=== PATIENT | female | born 1995 | race Caucasian/White ===

== ENCOUNTER 2019-08-20 11:27 | Emergency (ER) | payer SELFPAY ==
[~2019-08-20] VITALS: Ht 165.1 cm; Wt 78.5 kg
[2019-08-20 11:36] VITALS: BP 119/79
--- NOTE | 2019-08-20 12:08 | NUR ---
TO ER BED 2
--- NOTE | 2019-08-20 12:20 | NUR ---
24/F TO ED VIA PRIMARY CARE DR CANDELARIA FOR PERSISTANT N/V WITH ABD PAIN. ABD IS SOFT NON TENDER. NO DISTENTION NOTED. BOWEL SOUNDS PRESENT X 4. NO DISTRESS NOTED. IN BED FOR MSE.
--- NOTE | 2019-08-20 12:23 | NUR ---
Patient being evaluated by DR. WHITE at bedside.
[2019-08-20] MEDS ORDERED: ONDANSETRON 4 MG/2 ML VIAL IVP ONE (12:25)
[2019-08-20] MEDS ORDERED: MULTIVITAMIN-12 10 ML, THIAMINE 100 MG, MAGNESIUM SULFATE 50% 2,000 MG, FOLIC ACID 5 MG... IV ONE ×5 (12:25)
[2019-08-20] MEDS ORDERED: PROMETHAZINE 25 MG SUPP RC ONE (12:25)
--- NOTE | 2019-08-20 12:40 | NUR ---
IV INSERTED TO LEFT AC 20GA WITH GOOD BLOOD RETURN, LAB COLLECTED ORDERED, PATIENT TOLERATED WELL.
--- NOTE | 2019-08-20 12:51 | NUR ---
US AT BEDSIDE
[2019-08-20 12:59] LABS: APPEARANCE,URINE CLEAR (CLEAR); BILIRUBIN,URINE 1+ (NEGATIVE); BLOOD, URINE 2+ (NEGATIVE); COLOR,URINE YELLOW (YELLOW); LEUKOCYTE ESTERASE ,URINE 1+ (NEGATIVE); NITRITE, URINE NEGATIVE (NEGATIVE); UGLUCOSE NEGATIVE (NEGATIVE)
--- NOTE | 2019-08-20 13:00 | NUR ---
STARTED BANANA BAG, INDICATION AND SIDE EFFECTS EXPLAINED TO PATIENT, PATIENT VERBALIZED UNDERSTANDING, WILL CONTINUE TO MONITOR.
[2019-08-20 13:10] LABS: ACETONE, SERUM NEGATIVE (NEGATIVE); BASOPHILS % (AUTO) 0.2 % (0.0-2.0); EOSINOPHILS % (AUTO) 0.3 % (0.0-4.0); HEMATOCRIT 38.5 % (36-48); LYMPHOCYTES % (AUTO) 18.8 % (20.5-51.1); MEAN CORPUSCULAR HEMOGLOBIN 31 pg (27-31); MEAN CORPUSCULAR HGB CONC 34 g/dL (33-37); MEAN CORPUSCULAR VOLUME 90.6 fL (80-94); MONOCYTES # (AUTO) 0.7 K/uL (0.8-1.0); MONOCYTES % (AUTO) 6.2 % (1.7-9.3); NEUTROPHILS % (AUTO) 74.5 % (42.2-75.2); PLATELET COUNT (AUTO) 300 K/uL (140-450); RED BLOOD CELL COUNT(AUTO) 4.25 MIL/uL (4.20-5.40); RED CELL DISTRIBUTION WIDTH 12.5 % (11.6-13.7); WHITE BLOOD COUNT (AUTO) 10.8 K/uL (4.8-10.8)
[2019-08-20 13:19] LABS: RBC,URINE NONE SEEN /HPF (0-5)
--- NOTE | 2019-08-20 14:00 | NUR ---
BANANA BAG COMPLETED ORDERED, PATIENT TOLERATED WELL, VSS, DENIES PAIN, DENIES N/V AT THIS TIME, DR. WHITE MADE AWARE.
--- NOTE | 2019-08-20 15:00 | NUR ---
BANANA BAG IS COMPLETED, NO S/S OF ADVERSE EFFECTS, PATINET STATED FEELING BETTER, DR. WHITE MADE AWARE.
[2019-08-20] MEDS ORDERED: GLYCERIN PEDIATRIC 1 SUPP RC ONE (15:05)
--- NOTE | 2019-08-20 15:20 | NUR ---
IV REMOVED, NO BLEEDING NOTED.
[2019-08-20 15:29] VITALS: BP 122/78
--- NOTE | 2019-08-20 15:29 | NUR ---
Patient discharged TO HOME. Written and verbal after care instructions given and explained. Rx of ZOFRAN given. Patient educated on indication of medication including possible reaction and side effects. All questions addressed prior to discharge. ID band removed. Patient advised to follow up with PMD.
== END 2019-08-20 15:29 | disposition home or self-care (01) ==
LOC: MED 11:27
DX: O21.0 Mild hyperemesis gravidarum (principal); O99.281 Endocrine, nutritional and metabolic diseases complicating pregnancy, first trimester; O26.891 Other specified pregnancy related conditions, first trimester; E86.0 Dehydration; K59.00 Constipation, unspecified; Z3A.08 8 weeks gestation of pregnancy
CPT/HCPCS: 36415; 76801; 81001; 82009; 83605; 83735; 84702; 85025; 86900; 86901; 87086; 96365; 96375; 99284; A9153; J2405; J2550; J3411; J3475; J3490; J7030; Q0092

== ENCOUNTER 2019-09-15 18:41 | Emergency (ER) | payer SELFPAY ==
[~2019-09-15] VITALS: Ht 167.6 cm; Wt 75.7 kg
[2019-09-15 19:11] VITALS: BP 116/72
--- NOTE | 2019-09-15 19:19 | NUR ---
PT AMBULATED TO ER BED 07
--- NOTE | 2019-09-15 19:35 | NUR ---
PT BIB SPOUSE C/O VAGINAL BLEEDING FOR THE LAST TWO HOURS. SAYS SHE'S CHANGED THE PAD TWICE; BRIGHT RED BLOOD; PADS NOT SATURATED. PT IS 11 WEEKS ; LMP 12/3; DENIES ABD PAIN. PT STATES SHE HAS BEEN NAUSEOUS THROUGHOUT THE AND HAS BEEN TAKING ZOFRAN, WELL FOLIC ACID. DENIES DIARRHEA AND URINARY SYMPTOMS. PT STATES SHE HAS HAD LBP X2 DAYS 01/07 WHEN LAYING DOWN. AOX4, BREATHING NON-LABORED DENIES SOB, CP. VSS. RESTING COMFORTABLY WITH GURNEY UPRIGHT; SPOUSE AT BEDSIDE.
[2019-09-15 20:29] LABS: BASOPHILS # (AUTO) 0.1 K/uL (0.00-0.22); BASOPHILS % (AUTO) 1.1 % (0.0-2.0); EOSINOPHILS # (AUTO) 0.1 K/uL (0-0.4); EOSINOPHILS % (AUTO) 0.7 % (0.0-4.0); HEMATOCRIT 36.6 % (36-48); HEMOGLOBIN 12.4 g/dL (12.0-16.0); LYMPHOCYTES # (AUTO) 3.1 K/uL (2.5-16.5); LYMPHOCYTES % (AUTO) 27.3 % (20.5-51.1); MEAN CORPUSCULAR HEMOGLOBIN 30 pg (27-31); MEAN CORPUSCULAR HGB CONC 34 g/dL (33-37); MEAN CORPUSCULAR VOLUME 87.8 fL (80-94); MONOCYTES # (AUTO) 0.8 K/uL (0.8-1.0); MONOCYTES % (AUTO) 6.7 % (1.7-9.3); NEUTROPHILS # (AUTO) 7.4 K/uL (1.8-7.7); NEUTROPHILS % (AUTO) 64.2 % (42.2-75.2); PLATELET COUNT (AUTO) 244 K/uL (140-450); RED BLOOD CELL COUNT(AUTO) 4.17 MIL/uL (4.20-5.40); RED CELL DISTRIBUTION WIDTH 12.8 % (11.6-13.7); WHITE BLOOD COUNT (AUTO) 11.5 K/uL (4.8-10.8)
[2019-09-15 20:53] LABS: ALBUMIN 3.7 g/dL (3.4-5.0); ANION GAP 14.5 (8-16); CARBON DIOXIDE 24.3 mmol/L (21-32); CREATININE 0.5 mg/dL (0.6-1.3); POTASSIUM 3.8 mmol/L (3.5-5.1); TOTAL BILIRUBIN 0.3 mg/dL (0.0-1.0)
--- NOTE | 2019-09-15 21:30 | NUR ---
Patient discharged with v/s stable. Written and verbal after care instructions given and explained. Patient verbalized understanding. Ambulatory with steady gait. All questions addressed prior to discharge. Advised to follow up with PMD.
[2019-09-15 21:43] VITALS: BP 115/70
== END 2019-09-15 21:30 | disposition home or self-care (01) ==
LOC: MED 18:41
DX: O20.8 Other hemorrhage in early pregnancy (principal); Z3A.11 11 weeks gestation of pregnancy
CPT/HCPCS: 36415; 76801; 80053; 81002; 81025; 84702; 85025; 86900; 86901; 99284

== ENCOUNTER 2019-10-23 17:09 | Emergency (ER) | payer MEDICAID ==
[~2019-10-23] VITALS: Ht 165.1 cm; Wt 66.2 kg
[2019-10-23 17:14] VITALS: BP 124/82
[2019-10-23] MEDS ORDERED: METOCLOPRAMIDE 10 MG/2 ML INJ VIAL IVP ONE (17:35)
[2019-10-23] MEDS ORDERED: NACL 0.9% 1,000 ML IV ONE ×2 (17:35→18:20)
[2019-10-23 17:53] LABS: APPEARANCE,URINE CLEAR (CLEAR); BILIRUBIN,URINE 2+ (NEGATIVE); BLOOD, URINE NEGATIVE (NEGATIVE); COLOR,URINE ORANGE (YELLOW); LEUKOCYTE ESTERASE ,URINE NEGATIVE (NEGATIVE); NITRITE, URINE NEGATIVE (NEGATIVE); UGLUCOSE TRACE (NEGATIVE)
[2019-10-23 17:53] LABS: BASOPHILS % (AUTO) 0.4 % (0.0-2.0); EOSINOPHILS % (AUTO) 0.1 % (0.0-4.0); HEMATOCRIT 41.5 % (36-48); HEMOGLOBIN 14.3 g/dL (12.0-16.0); LYMPHOCYTES # (AUTO) 1.8 K/uL (2.5-16.5); LYMPHOCYTES % (AUTO) 16.8 % (20.5-51.1); MEAN CORPUSCULAR HEMOGLOBIN 31 pg (27-31); MEAN CORPUSCULAR HGB CONC 35 g/dL (33-37); MEAN CORPUSCULAR VOLUME 89.1 fL (80-94); MONOCYTES # (AUTO) 0.6 K/uL (0.8-1.0); MONOCYTES % (AUTO) 5.6 % (1.7-9.3); NEUTROPHILS # (AUTO) 8.3 K/uL (1.8-7.7); NEUTROPHILS % (AUTO) 77.1 % (42.2-75.2); PLATELET COUNT (AUTO) 333 K/uL (140-450); RED BLOOD CELL COUNT(AUTO) 4.66 MIL/uL (4.20-5.40); RED CELL DISTRIBUTION WIDTH 12.5 % (11.6-13.7); WHITE BLOOD COUNT (AUTO) 10.8 K/uL (4.8-10.8)
[2019-10-23 18:11] LABS: ALBUMIN 4.2 g/dL (3.4-5.0); ANION GAP 19.5 (8-16); CARBON DIOXIDE 24.6 mmol/L (21-32); CREATININE 0.9 mg/dL (0.6-1.3); POTASSIUM 3.1 mmol/L (3.5-5.1); TOTAL BILIRUBIN 2.3 mg/dL (0.0-1.0)
[2019-10-23 19:04] VITALS: BP 117/59
== END 2019-10-23 19:04 | disposition home or self-care (01) ==
LOC: MED 17:09
DX: O21.0 Mild hyperemesis gravidarum (principal); O99.282 Endocrine, nutritional and metabolic diseases complicating pregnancy, second trimester; E86.0 Dehydration; Z3A.17 17 weeks gestation of pregnancy
CPT/HCPCS: 36415; 80053; 81003; 85025; 96361; 96374; 99283; J2765; J7030